=== PATIENT | female | born 1935 | race Caucasian/White ===

== ENCOUNTER 2016-11-09 21:43 | Inpatient (IN) | payer MEDICARE, BC ==
[2016-11-10] MEDS ORDERED: APAP325 MG PO (00:20)
[2016-11-10] MEDS ORDERED: BISAC-EVAC10 MG/SUPP RC (00:22)
[2016-11-10] MEDS ORDERED: BISACODYL5 MG PO (00:23)
[2016-11-10] MEDS ORDERED: COLACE100 MG PO (00:24)
[2016-11-10] MEDS ORDERED: KEPPRA500 MG PO (00:26)
[2016-11-10] MEDS ORDERED: RYTHMOL SR225 MG PO (00:28)
[2016-11-10] MEDS ORDERED: SEROQUEL25 MG PO (00:29)
[2016-11-10] MEDS ORDERED: CARDIZEM60 MG PO (00:29)
[2016-11-10] MEDS ORDERED: SYNTHROID88 MCG PO (00:31)
[2016-11-10] MEDS ORDERED: PRAVACHOL40 MG PO (00:37)
[2016-11-10] MEDS ORDERED: ALDACTONE25 MG PO (00:38)
[2016-11-10 06:58] LABS: BASOPHILS 0.3 % (0.0-2.0); EOSINOPHILS 2.6 % (0-7); HEMATOCRIT 33.3 % (36.0-48.0); HEMOGLOBIN 10.8 g/dL (12-16); IMMATURE GRANULOCYTES 0.4 % (0-5); LYMPHOCYTES 12.1 % (15-50); MCH 30.8 pg (26.0-34.0); MCHC 32.4 g/dL (31.0-37.0); MCV 94.9 fL (80.0-100.0); MEAN PLATELET VOLUME 8.5 fL (7.4-10.4); MONOCYTES 9.6 % (2-11); PLATELET COUNT 180 10x3/uL (130-400); RBC 3.51 10x6/uL (4.00-5.40); RDW 14.4 % (11.5-14.5); WBC 7.4 10x3/uL (4.8-10.8)
[2016-11-10 07:38] LABS: ANION GAP 14.3 mmol/L (8-16); BILIRUBIN - TOTAL 0.29 mg/dL (0.2-1.3); CALCIUM 8.6 mg/dL (8.5-10.1); CARBON DIOXIDE 26.8 mmol/L (21.0-32.0); CHOL - HDL RATIO 2.7 ratio (2.3-4.1); LDL-HDL RATIO 1.4 ratio (1.5-3.5); POTASSIUM - SERUM 4.1 mmol/L (3.5-5.1); PROTEIN - SERUM 6.9 g/dL (6.4-8.2); THYROID STIMULATING HORMONE 29.36 uIU/mL (0.36-3.74)
[2016-11-11 06:13] LABS: RAPID PLASMA REAGIN Non Reactive (Non Reactive)
[2016-11-11 08:16] LABS: FOLATE (FOLIC ACID) - SERUM 18.5 ng/mL (>3.0)
[2016-11-13 07:10] LABS: VITAMIN D 25 HYDROXY 34.3 ng/mL (30.0-100.0)
[2016-11-15] MEDS ORDERED: FEXOFENADINE HC60 MG PO (17:23)
[2016-11-17] MEDS ORDERED: DESERYL100 MG PO (13:34)
[2016-11-17 14:36] LABS: APPEARANCE CLEAR (CLEAR); BILIRUBIN NEGATIVE (NEGATIVE); COLOR YELLOW (YELLOW); GLUCOSE NEGATIVE (NEGATIVE); KETONE NEGATIVE (NEGATIVE); LEUKOCYTE ESTERASE NEGATIVE (NEGATIVE); NITRITE NEGATIVE (NEGATIVE); PROTEIN NEGATIVE (NEGATIVE); UROBILINOGEN NORMAL (NORMAL)
[2016-11-17 14:38] LABS: BACTERIA FEW /hpf (NONE SEEN); EPITHELIAL CELLS 0-5 /hpf (0-5); MUCUS <1+ /lpf (NONE SEEN); WHITE CELLS - URINE 0-5 /hpf (0-5)
== END 2016-11-18 14:55 | DRG 65 ==
LOC: D.PSYCH 21:43
PROVIDERS: Family Medicine; ADMIT Psychiatry & Neurology Psychiatry
DX: I62.00 Nontraumatic subdural hemorrhage, unspecified (principal); F05 Delirium due to known physiological condition; F01.50 Vascular dementia, unspecified severity, without behavioral disturbance, psychotic disturbance, mood disturbance, and anxiety; I48.91 Unspecified atrial fibrillation; E11.9 Type 2 diabetes mellitus without complications; I10 Essential (primary) hypertension; K59.00 Constipation, unspecified; K21.9 Gastro-esophageal reflux disease without esophagitis; F41.9 Anxiety disorder, unspecified; R56.9 Unspecified convulsions; E78.5 Hyperlipidemia, unspecified; E03.9 Hypothyroidism, unspecified; D64.9 Anemia, unspecified

== ENCOUNTER → 2017-09-18 07:57 | Outpatient (CLI) | payer MEDICARE ==
[2016-11-10 14:38] VITALS: BMI 29.2
[~2017-09-18 07:57] MED LIST: ALDACTONE25 MG PO; APAP325 MG PO; BISAC-EVAC10 MG/SUPP RC; BISACODYL5 MG PO; CARDIZEM60 MG PO; COLACE100 MG PO; DESERYL100 MG PO; FEXOFENADINE HC60 MG PO; KEPPRA500 MG PO; PRAVACHOL40 MG PO; RYTHMOL SR225 MG PO; SEROQUEL25 MG PO; SYNTHROID88 MCG PO
== END | disposition home or self-care (01) ==
LOC: D.CT 07:57
DX: S09.90XA Unspecified injury of head, initial encounter (principal); W19.XXXA Unspecified fall, initial encounter; Y93.89 Activity, other specified; Y92.89 Other specified places as the place of occurrence of the external cause